=== PATIENT | male | born 1965 | race Caucasian/White ===

== ENCOUNTER 2020-05-10 10:41 | Inpatient (IN) | payer OTHER ==
[~2020-05-10] VITALS: Ht 172.7 cm; Wt 148.8 kg
[2020-05-10] VITALS (36 sets, daily range): BP systolic 75–126; BP diastolic 34–74
--- NOTE | ~2020-05-10 | CON ---
[address] [address] CONSULTATION Name: SOLANGE MCKEON Room: [address] IN M.R.#: [id number] Admission: 05/10/20 Attend Phys: Selwyn Pryor Discharge: Date of : 67 Report #: [id number] THIS REPORT FOR: //name// cc: Josias Man MD, Anthony MD ~ THIS REPORT FOR: //name// CC: Josias Gonzalez DATE OF SERVICE: 05/11/2020 REQUESTING PHYSICIAN: Esdras Gonzalez DO HISTORY OF PRESENT ILLNESS: This is a 55-year-old male with no previous history of colonoscopy who was admitted to the hospital with weakness and dizziness. The patient also reports that he has been constipated for several days, and when he tried to pass his stool, he saw blood in his stool. He was anemic on presentation with a hemoglobin of 10. After hydration due to hypertension, his hemoglobin dropped to 8. The patient denies any abdominal pain, nausea, vomiting or dyspepsia. He has had several orthopedic surgeries in the past. The patient denies use of NSAIDs. He also takes medication for hypertension. PAST MEDICAL AND SURGICAL HISTORY: Significant for: 1. History of cervical surgery x 2. 2. Right shoulder replacement. 3. Bilateral knee replacement. 4. He also has had left ankle repair. 5. Hypertension. ALLERGIES: No known drug allergy. MEDICATIONS: Please refer to SOCIAL HISTORY: The patient is employed. He smokes daily. He denies use of drugs and alcohol. FAMILY HISTORY: Negative for GI malignancy. PHYSICAL EXAMINATION: VITAL SIGNS: Reveal blood pressure of 132/62, respirations 13, pulse 105, temperature 98.4. LUNGS: Clear. CARDIOVASCULAR: Regular. ABDOMEN: Soft, nontender, nondistended. [place] [address] CONSULTATION Name: SOLANGE MCKEON Malia Room: [address]#: [id number] Admission: 05/10/20 Attend Phys: Selwyn Pryor Discharge: Date of : 67 Report #: [id number] NEUROLOGIC: The patient is alert and oriented x 3. LABORATORY DATA: Labs reveal sodium of 139, potassium 3.5, BUN is 22, creatinine 1.0, glucose 140. AST is 11, ALT 18 with alkaline phosphatase of 43. Phosphorus is 2.3, calcium 7.6. Albumin is 3.0. INR is 1.2. WBC is 12.7, hemoglobin 8.2 and platelet is 242. IMAGING: CT of abdomen and pelvis was obtained on admission. There is a 4 mm non-obstructing calculus noted in the lower left kidney. The abdomen otherwise looks normal. ASSESSMENT AND PLAN: This is a patient with sepsis and hypertension who was just taken off pressors. He also has some derangement in his electrolytes. We will wait until he stabilizes tomorrow and prep him tomorrow for EGD, colon on Monday. The patient is agreeable with plan. By: 1201 [id number] Fernandes MD /nt
[2020-05-10] MEDS ORDERED: SINGULAIR 10 MG10 M1 PO (10:50)
[2020-05-10] MEDS ORDERED: LOTENSIN20 MG PO (10:51)
[2020-05-10 11:18] LABS: HEMATOCRIT 30.2 % (42.0-52.0); HEMOGLOBIN 10.3 gm/dL (14.0-18.0); MCH 30.2 pg (26.0-34.0); MCHC 34.2 g/dL (28.0-37.0); MCV 88.3 fL (80.0-100.0); MPV 9.1 fl. (7.2-11.1); NUCLEATED RBCS 0 /100WBC; PLATELET COUNT* 269 thou/uL (150-400); RBC 3.42 mil/uL (4.50-6.00)
[2020-05-10 11:28] LABS: APTT 22.8 Seconds (25.0-31.3); PROTIME 10.3 Seconds (9.20-11.50)
[2020-05-10 11:42] LABS: CREATININE 1.5 mg/dL (0.6-1.3); POTASSIUM 4.6 mmol/L (3.5-5.1)
[2020-05-10 11:46] LABS: ABSOLUTE LYMPHOCYTES 1.7 thou/uL (0.8-5.3); ABSOLUTE MONOCYTES 0.3 thou/uL (0.0-1.2)
[2020-05-10 11:47] LABS: ANISOCYTOSIS Occasional; OVALOCYTES Occasional; PLATELET ESTIMATE ADEQUATE
[2020-05-10 11:53] LABS: ALBUMIN 3.1 g/dL (3.4-5.0); TOTAL BILIRUBIN 0.2 mg/dL (<0.1-1.0); TOTAL PROTEIN 4.8 g/dL (6.4-8.2)
[2020-05-10 13:52] LABS: CALCIUM 7.4 mg/dL (8.5-10.1); CREATININE 1.3 mg/dL (0.6-1.3); MAGNESIUM 1.5 mg/dL (1.8-2.4); PHOSPHORUS* 2.3 mg/dL (2.5-4.9); POTASSIUM 4.3 mmol/L (3.5-5.1)
[2020-05-10 14:46] LABS: URINE BILIRUBIN NEGATIVE (Negative); URINE BLOOD NEGATIVE (Negative); URINE CLARITY CLEAR; URINE COLOR YELLOW; URINE GLUCOSE-RANDOM NEGATIVE (Negative); URINE KETONES TRACE (Negative); URINE LEUKOCYTES-REFLEX NEGATIVE (Negative); URINE NITRITE-REFLEX NEGATIVE (Negative); URINE PROTEIN NEGATIVE (Negative); URINE SPECIFIC GRAVITY 1.025 (1.005-1.030); URINE UROBILINOGEN 0.2 E.U./dl (0.2-1.0)
[2020-05-11] VITALS (40 sets, daily range): BP systolic 69–141; BP diastolic 32–80
[2020-05-11 04:52] LABS: ABSOLUTE BASOPHILS 0.1 thou/uL (0.0-0.2); ABSOLUTE EOSINOPHILS 0.1 thou/uL (0.0-0.7); ABSOLUTE LYMPHOCYTES 1.9 thou/uL (0.8-5.3); ABSOLUTE MONOCYTES 1.6 thou/uL (0.0-1.2); BASOPHILS 0.4 %; EOSINOPHILS 1.1 %; HEMATOCRIT 24.2 % (42.0-52.0); LYMPHOCYTES 15.1 %; MCH 29.7 pg (26.0-34.0); MCHC 33.7 g/dL (28.0-37.0); MCV 88.2 fL (80.0-100.0); MONOCYTES 12.7 %; MPV 8.2 fl. (7.2-11.1); NUCLEATED RBCS 0 /100WBC; PLATELET COUNT* 242 thou/uL (150-400); POLYS 70.7 %; RBC 2.75 mil/uL (4.50-6.00); RDW-CV 14.5 % (10.5-14.5); WBC 12.7 thou/uL (4.0-11.0)
[2020-05-11 04:59] LABS: HEMOGLOBIN 8.2 gm/dL (14.0-18.0)
[2020-05-11 05:08] LABS: CALCIUM 7.6 mg/dL (8.5-10.1); POTASSIUM 3.5 mmol/L (3.5-5.1); TOTAL BILIRUBIN 0.2 mg/dL (<0.1-1.0)
[2020-05-11 08:52] LABS: CHOLESTEROL 112 mg/dL (<200); HDL CHOLESTEROL 24 mg/dL (>40); LDL CHOLESTEROL 65 mg/dL (<100); TC:HDL 4.7 Ratio (Not establshd); TRIGLYCERIDE 115 mg/dL (<150); VLDL 23 mg/dL (<40)
[2020-05-11 08:53] LABS: SERUM ASSESSMENT Clear
[2020-05-11 09:04] LABS: % SATURATION 25 % (20-39); IRON 53 ug/dL (50-175)
--- NOTE | 2020-05-11 10:55 | EKG ---
[place] [address] ELECTROCARDIOGRAM REPORT Name: SOLANGE MCKEON Room: [address] ADM IN .R.#: [id number] Admission: 05/10/20 Attend Phys: Esdras Gonzalez Discharge: Date of : 67 Date of Service: 05/10/20 1047 Report #: [id number] THIS REPORT FOR: //name// [facility] ED Test Date: 2020-05-10 Test Time: 10:47:37 Pat Name: SOLANGE MCKEON Department: Room: [facility] Gender: M Driver/Refuse Collector: : 1965 Requested By: Miguel Gannon Order Number: [id number] MD: Krystian Ochoa Measurements Intervals [place] Rate: 101 P: 27 NV: 160 QRS: 140 QRSD: 95 T: 0 QT: 331 QTc: 429 Interpretive Statements Sinus tachycardia late transition Inferior infarct, old No previous ECG available for comparison Electronically Signed On 05-11-2020 10:55:37 CDT by Krystian Ochoa [email or web address] <ELECTRONICALLY SIGNED> By: Krystian Ochoa MD, [facility] 05/11/20 1055 1047 1047 Krystian Ochoa MD, [facility] /EPI
[2020-05-11 16:31] LABS: HEMATOCRIT 19.2 % (42.0-52.0); HEMOGLOBIN 6.6 gm/dL (14.0-18.0)
[2020-05-11 21:09] LABS: HEMATOCRIT 14.8 % (42.0-52.0); HEMOGLOBIN 5.1 gm/dL (14.0-18.0)
[2020-05-12] VITALS (53 sets, daily range): BP systolic 61–130; BP diastolic 27–80
[2020-05-12 01:47] LABS: HEMATOCRIT 18.1 % (42.0-52.0); HEMOGLOBIN 6.3 gm/dL (14.0-18.0)
[2020-05-12 03:05] LABS: GLYCOHEMOGLOBIN (HGB A1C) 5.4 % (4.8-5.6)
[2020-05-12 05:11] LABS: ABSOLUTE BASOPHILS 0.1 thou/uL (0.0-0.2); ABSOLUTE LYMPHOCYTES 1.1 thou/uL (0.8-5.3); ABSOLUTE NEUTROPHILS 13.7 thou/uL (1.6-8.1); BASOPHILS 0.5 %; LYMPHOCYTES 7.1 %; MCH 30.6 pg (26.0-34.0); MCHC 34.8 g/dL (28.0-37.0); MCV 88.1 fL (80.0-100.0); MPV 7.9 fl. (7.2-11.1); NUCLEATED RBCS 0 /100WBC; POLYS 86.4 %; RBC 2.04 mil/uL (4.50-6.00); WBC 15.8 thou/uL (4.0-11.0)
[2020-05-12 05:13] LABS: HEMATOCRIT 17.9 % (42.0-52.0); HEMOGLOBIN 6.2 gm/dL (14.0-18.0); PLATELET COUNT* 23 thou/uL (150-400)
[2020-05-12 05:45] LABS: ALBUMIN 1.5 g/dL (3.4-5.0); CALCIUM 6.4 mg/dL (8.5-10.1); CREATININE 0.9 mg/dL (0.6-1.3); POTASSIUM 4.3 mmol/L (3.5-5.1); TOTAL BILIRUBIN 0.2 mg/dL (<0.1-1.0); TOTAL PROTEIN 2.7 g/dL (6.4-8.2)
[2020-05-12 06:50] LABS: APTT 22.2 Seconds (25.0-31.3); INR 1.2; PROTIME 12.3 Seconds (9.20-11.50)
[2020-05-12 16:25] LABS: MCH 30.1 pg (26.0-34.0); MCV 88.7 fL (80.0-100.0); RBC 1.87 mil/uL (4.50-6.00); RDW-CV 14.1 % (10.5-14.5); WBC 19.7 thou/uL (4.0-11.0)
[2020-05-12 16:30] LABS: CALCIUM 6.4 mg/dL (8.5-10.1); CREATININE 1.1 mg/dL (0.6-1.3); POTASSIUM 4.1 mmol/L (3.5-5.1)
[2020-05-12 16:35] LABS: HEMATOCRIT 16.6 % (42.0-52.0); HEMOGLOBIN 5.6 gm/dL (14.0-18.0)
[2020-05-12 20:14] LABS: HEMATOCRIT 17.2 % (42.0-52.0)
[2020-05-12 23:00] LABS: ABSOLUTE BASOPHILS 0.1 thou/uL (0.0-0.2); ABSOLUTE LYMPHOCYTES 1.7 thou/uL (0.8-5.3); ABSOLUTE MONOCYTES 2.2 thou/uL (0.0-1.2); ABSOLUTE NEUTROPHILS 13.8 thou/uL (1.6-8.1); BASOPHILS 0.4 %; EOSINOPHILS 0.1 %; LYMPHOCYTES 9.4 %; MCH 30.7 pg (26.0-34.0); MCV 87.7 fL (80.0-100.0); MONOCYTES 12.2 %; MPV 8.1 fl. (7.2-11.1); NUCLEATED RBCS 1 /100WBC; PLATELET COUNT* 123 thou/uL (150-400); POLYS 77.9 %; RBC 2.15 mil/uL (4.50-6.00); RDW-CV 14.9 % (10.5-14.5); WBC 17.7 thou/uL (4.0-11.0)
[2020-05-12 23:06] LABS: CALCIUM 6.9 mg/dL (8.5-10.1); MAGNESIUM 1.5 mg/dL (1.8-2.4)
[2020-05-12 23:08] LABS: HEMATOCRIT 18.8 % (42.0-52.0); HEMOGLOBIN 6.6 gm/dL (14.0-18.0)
[2020-05-12 23:09] LABS: INR 1.1; PROTIME 11.4 Seconds (9.20-11.50)
[2020-05-13] VITALS (36 sets, daily range): BP systolic 88–163; BP diastolic 36–76
[2020-05-13 01:29] LABS: HEMOGLOBIN 6.6 gm/dL (14.0-18.0)
[2020-05-13 01:30] LABS: HEMATOCRIT 19.1 % (42.0-52.0)
[2020-05-13 02:28] LABS: HEMATOCRIT 19.1 % (42.0-52.0); HEMOGLOBIN 6.7 gm/dL (14.0-18.0)
[2020-05-13 04:31] LABS: MCH 30.7 pg (26.0-34.0); MCV 87.8 fL (80.0-100.0); MPV 8.4 fl. (7.2-11.1); NUCLEATED RBCS 1 /100WBC; PLATELET COUNT* 80 thou/uL (150-400); RBC 2.19 mil/uL (4.50-6.00); RDW-CV 14.5 % (10.5-14.5); WBC 13.1 thou/uL (4.0-11.0)
[2020-05-13 04:32] LABS: HEMATOCRIT 19.2 % (42.0-52.0); HEMOGLOBIN 6.7 gm/dL (14.0-18.0)
[2020-05-13 04:43] LABS: CALCIUM 6.7 mg/dL (8.5-10.1); MAGNESIUM 1.4 mg/dL (1.8-2.4); POTASSIUM 3.6 mmol/L (3.5-5.1)
[2020-05-13 04:46] LABS: INR 1.1; PROTIME 11.7 Seconds (9.20-11.50)
[2020-05-13 05:27] LABS: ABSOLUTE LYMPHOCYTES 2.1 thou/uL (0.8-5.3); ABSOLUTE MONOCYTES 0.9 thou/uL (0.0-1.2); ABSOLUTE NEUTROPHILS 10.1 thou/uL (1.6-8.1); ANISOCYTOSIS 1+; HYPOCHROMASIA 1+; MYELOCYTES 1 %; PLATELET ESTIMATE DECREASED; POLYCHROMASIA 1+
[2020-05-13 05:28] LABS: POIKILOCYTOSIS 1+
[2020-05-13 08:14] LABS: HEMATOCRIT 20.5 % (42.0-52.0); HEMOGLOBIN 7.1 gm/dL (14.0-18.0)
[2020-05-13 12:01] LABS: ABSOLUTE BASOPHILS 0.1 thou/uL (0.0-0.2); ABSOLUTE EOSINOPHILS 0.1 thou/uL (0.0-0.7); ABSOLUTE LYMPHOCYTES 1.4 thou/uL (0.8-5.3); ABSOLUTE MONOCYTES 1.2 thou/uL (0.0-1.2); BASOPHILS 0.6 %; EOSINOPHILS 1.1 %; LYMPHOCYTES 10.9 %; MCH 30.7 pg (26.0-34.0); MCHC 34.9 g/dL (28.0-37.0); MONOCYTES 9.5 %; MPV 7.6 fl. (7.2-11.1); NUCLEATED RBCS 0 /100WBC; PLATELET COUNT* 121 thou/uL (150-400); POLYS 77.9 %; RBC 2.28 mil/uL (4.50-6.00); RDW-CV 14.4 % (10.5-14.5); WBC 12.8 thou/uL (4.0-11.0)
[2020-05-13 12:07] LABS: CALCIUM 6.8 mg/dL (8.5-10.1); MAGNESIUM 1.6 mg/dL (1.8-2.4)
[2020-05-13 12:08] LABS: INR 1.1; PROTIME 11.3 Seconds (9.20-11.50)
[2020-05-13 20:07] LABS: ABSOLUTE EOSINOPHILS 0.2 thou/uL (0.0-0.7); ABSOLUTE LYMPHOCYTES 1.7 thou/uL (0.8-5.3); ABSOLUTE MONOCYTES 1.1 thou/uL (0.0-1.2); ABSOLUTE NEUTROPHILS 8.3 thou/uL (1.6-8.1); BASOPHILS 0.3 %; EOSINOPHILS 1.9 %; LYMPHOCYTES 15.3 %; MCH 30.5 pg (26.0-34.0); MCHC 34.5 g/dL (28.0-37.0); MCV 88.4 fL (80.0-100.0); MONOCYTES 9.5 %; MPV 7.3 fl. (7.2-11.1); NUCLEATED RBCS 1 /100WBC; PLATELET COUNT* 129 thou/uL (150-400); RBC 2.27 mil/uL (4.50-6.00); RDW-CV 14.4 % (10.5-14.5); WBC 11.4 thou/uL (4.0-11.0)
[2020-05-13 20:14] LABS: HEMOGLOBIN 6.9 gm/dL (14.0-18.0)
[2020-05-13 20:17] LABS: CALCIUM 7.3 mg/dL (8.5-10.1); MAGNESIUM 1.7 mg/dL (1.8-2.4)
[2020-05-13 20:22] LABS: PROTIME 10.7 Seconds (9.20-11.50)
[2020-05-14 02:45] VITALS: BP 124/54
[2020-05-14 05:15] LABS: HEMATOCRIT 20.8 % (42.0-52.0); HEMOGLOBIN 7.3 gm/dL (14.0-18.0); MCH 31.2 pg (26.0-34.0); MCV 89.2 fL (80.0-100.0); MPV 7.6 fl. (7.2-11.1); RBC 2.33 mil/uL (4.50-6.00); RDW-CV 14.5 % (10.5-14.5); WBC 9.4 thou/uL (4.0-11.0)
[2020-05-14 05:25] LABS: CALCIUM 6.9 mg/dL (8.5-10.1); CREATININE 0.8 mg/dL (0.6-1.3); MAGNESIUM 1.8 mg/dL (1.8-2.4); POTASSIUM 3.4 mmol/L (3.5-5.1)
[2020-05-14 12:02] VITALS: BP 117/54
[2020-05-14 16:04] LABS: HEMATOCRIT 22.2 % (42.0-52.0); HEMOGLOBIN 7.8 gm/dL (14.0-18.0)
[2020-05-14 16:09] LABS: CALCIUM 7.8 mg/dL (8.5-10.1); CREATININE 0.8 mg/dL (0.6-1.3); POTASSIUM 3.5 mmol/L (3.5-5.1)
[2020-05-14 16:13] VITALS: BP 134/63
[2020-05-15] VITALS: BP 120/49
[2020-05-15 04:00] VITALS: BP 145/70
[2020-05-15 05:11] LABS: HEMATOCRIT 22.5 % (42.0-52.0); HEMOGLOBIN 7.8 gm/dL (14.0-18.0); MCH 30.6 pg (26.0-34.0); MCHC 34.5 g/dL (28.0-37.0); MCV 88.7 fL (80.0-100.0); MPV 7.2 fl. (7.2-11.1); RBC 2.53 mil/uL (4.50-6.00); RDW-CV 14.8 % (10.5-14.5); WBC 7.8 thou/uL (4.0-11.0)
[2020-05-15] MEDS ORDERED: OMEPRAZOLE40 MG PO (08:48)
[2020-05-15 09:34] VITALS: BP 145/70
== END 2020-05-15 11:15 | disposition home or self-care (01) | DRG 377 ==
LOC: M.ERS 10:41 → M.TBA-ER 12:45 → M.ICU 12:45 → M.2W 12:45 → M.ICU 13:44 → M.2W 05-13 13:08
PROVIDERS: Emergency Medicine Emergency Medical Services; Internal Medicine; Internal Medicine Gastroenterology; Internal Medicine Hematology & Oncology; ADMIT Internal Medicine; ATTEND Internal Medicine
PROC: 02HV33Z Insertion of Infusion Device into Superior Vena Cava, Percutaneous Approach (ICD-10-PCS; 2020-05-10)
PROC: 30233K1 Transfusion of Nonautologous Frozen Plasma into Peripheral Vein, Percutaneous Approach (ICD-10-PCS; 2020-05-11)
PROC: 30233M1 Transfusion of Nonautologous Plasma Cryoprecipitate into Peripheral Vein, Percutaneous Approach (ICD-10-PCS; 2020-05-11)
PROC: 30233R1 Transfusion of Nonautologous Platelets into Peripheral Vein, Percutaneous Approach (ICD-10-PCS; 2020-05-11)
PROC: 30233N1 Transfusion of Nonautologous Red Blood Cells into Peripheral Vein, Percutaneous Approach (ICD-10-PCS; 2020-05-11)
PROC: 0D598ZZ Destruction of Duodenum, Via Natural or Artificial Opening Endoscopic (ICD-10-PCS; principal; 2020-05-12)
DX: K57.11 Diverticulosis of small intestine without perforation or abscess with bleeding (principal); R57.8 Other shock; N17.0 Acute kidney failure with tubular necrosis; E44.1 Mild protein-calorie malnutrition; D62 Acute posthemorrhagic anemia; Z68.42 Body mass index [BMI] 45.0-49.9, adult; K29.71 Gastritis, unspecified, with bleeding; Z96.653 Presence of artificial knee joint, bilateral; I10 Essential (primary) hypertension; I95.9 Hypotension, unspecified; Z96.611 Presence of right artificial shoulder joint; F17.210 Nicotine dependence, cigarettes, uncomplicated; D69.6 Thrombocytopenia, unspecified; K44.9 Diaphragmatic hernia without obstruction or gangrene; K21.0 Gastro-esophageal reflux disease with esophagitis; E66.01 Morbid (severe) obesity due to excess calories; G47.00 Insomnia, unspecified; Z20.828 Contact with and (suspected) exposure to other viral communicable diseases; Z79.899 Other long term (current) drug therapy

== ENCOUNTER 2020-05-21 12:10 | Emergency (ER) | payer OTHER ==
[~2020-05-21] VITALS: Ht 175.3 cm; Wt 134.3 kg
[~2020-05-21 12:10] MED LIST: LOTENSIN20 MG PO; OMEPRAZOLE40 MG PO; SINGULAIR 10 MG10 M1 PO
[2020-05-21 12:38] LABS: ABSOLUTE BASOPHILS 0.1 thou/uL (0.0-0.2); ABSOLUTE EOSINOPHILS 0.3 thou/uL (0.0-0.7); ABSOLUTE LYMPHOCYTES 1.1 thou/uL (0.8-5.3); ABSOLUTE MONOCYTES 0.9 thou/uL (0.0-1.2); ABSOLUTE NEUTROPHILS 8.6 thou/uL (1.6-8.1); BASOPHILS 0.5 %; EOSINOPHILS 2.8 %; HEMATOCRIT 31.9 % (42.0-52.0); HEMOGLOBIN 10.8 gm/dL (14.0-18.0); LYMPHOCYTES 9.8 %; MCH 29.8 pg (26.0-34.0); MCHC 33.7 g/dL (28.0-37.0); MCV 88.3 fL (80.0-100.0); MPV 7.3 fl. (7.2-11.1); NUCLEATED RBCS 0 /100WBC; PLATELET COUNT* 343 thou/uL (150-400); POLYS 78.9 %; RBC 3.61 mil/uL (4.50-6.00); WBC 10.9 thou/uL (4.0-11.0)
[2020-05-21 12:43] LABS: CALCIUM 8.7 mg/dL (8.5-10.1); CREATININE 1.1 mg/dL (0.6-1.3); POTASSIUM 4.1 mmol/L (3.5-5.1)
[2020-05-21 12:47] LABS: APTT 23.5 Seconds (25.0-31.3); PROTIME 9.9 Seconds (9.20-11.50)
[2020-05-21 12:53] LABS: ALBUMIN 3.3 g/dL (3.4-5.0); TOTAL BILIRUBIN 0.2 mg/dL (<0.1-1.0)
[2020-05-21 13:46] LABS: URINE BILIRUBIN NEGATIVE (Negative); URINE BLOOD NEGATIVE (Negative); URINE CLARITY CLEAR; URINE COLOR YELLOW; URINE GLUCOSE-RANDOM NEGATIVE (Negative); URINE KETONES NEGATIVE (Negative); URINE LEUKOCYTES-REFLEX NEGATIVE (Negative); URINE NITRITE-REFLEX NEGATIVE (Negative); URINE PROTEIN NEGATIVE (Negative); URINE UROBILINOGEN 0.2 E.U./dl (0.2-1.0)
[2020-05-21 15:25] VITALS: BP 154/82
--- NOTE | 2020-05-21 15:43 | EKG ---
[place] [address] ELECTROCARDIOGRAM REPORT Name: SOLANGE MCKEON Room: [facility]#: [id number] Admission: 05/21/20 Attend Phys: Discharge: 05/21/20 Date of : 67 Date of Service: 05/21/20 1217 Report #: [id number] THIS REPORT FOR: //name// [facility] ED Test Date: 2020-05-21 Test Time: 12:17:02 Pat Name: SOLANGE MCKEON Department: Room: Gender: M Airplane Pilot Commercial: ZARI : 1965 Requested By: Yunier Alvarez Order Number: [id number] MD: Chepe Farah Measurements Intervals [place] Rate: 77 P: 19 [place]: 152 QRS: 174 QRSD: 102 T: 3 QT: 370 QTc: 419 Interpretive Statements Sinus rhythm Right axis deviation Abnormal R-wave progression, late transition Compared to ECG 05/10/2020 10:47:37 Right-axis deviation now present Sinus tachycardia no longer present Myocardial infarct finding no longer present Electronically Signed On 05-21-2020 15:43:42 CDT by Chepe Farah [email or web address] <ELECTRONICALLY SIGNED> By: Chepe Farah MD, FACC 05/21/20 1543 1217 1217 Chepe Farah MD, FAC /EPI
== END 2020-05-21 15:26 | disposition home or self-care (01) ==
LOC: M.ERS 12:10
PROVIDERS: Family Medicine
DX: R42 Dizziness and giddiness (principal); I10 Essential (primary) hypertension; Z96.653 Presence of artificial knee joint, bilateral